=== PATIENT | male | born 1975 | race Caucasian/White ===

== ENCOUNTER 2021-08-08 21:28 | Emergency (ER) | payer BC ==
[~2021-08-08] VITALS: Ht 182.8 cm; Wt 102.1 kg
[2021-08-08] MEDS ORDERED: VALSARTAN40 MG PO (21:36)
[2021-08-08] MEDS ORDERED: ATENOLOL50 M1 PO (21:36)
== END 2021-08-08 23:25 | disposition home or self-care (01) ==
LOC: ED 21:28
DX: F41.1 Generalized anxiety disorder (principal)